=== PATIENT | male | born 1950 | race Caucasian/White ===

== ENCOUNTER 2017-12-18 07:13 | Emergency (ER) | payer MEDICARE, MEDICAID ==
[2017-12-18] MEDS: BACITRACIN 0.9 GM OINT TOP (07:36)
[2017-12-18] MEDS: DIPHTH/TET/ACEL PERTUSS (ADULT) 0.5 ML VIAL IM* (07:37)
== END 2017-12-18 07:49 | disposition home or self-care (01) ==
LOC: FTE 07:13
DX: T23.232A Burn of second degree of multiple left fingers (nail), not including thumb, initial encounter (principal); E11.9 Type 2 diabetes mellitus without complications; I10 Essential (primary) hypertension; E03.9 Hypothyroidism, unspecified; X11.8XXA Contact with other hot tap-water, initial encounter; Y92.9 Unspecified place or not applicable; Z23 Encounter for immunization; Z98.61 Coronary angioplasty status
CPT/HCPCS: 16020; 90471; 90715; 99283-25